=== PATIENT | male | born 1970 | race Caucasian/White ===

== ENCOUNTER 2021-02-27 16:52 | Emergency (ER) | payer SELFPAY | END 2021-02-27 17:32 | disposition home or self-care (01) | LOC: NAV ERS 16:52 | DX: Z20.822 Contact with and (suspected) exposure to COVID-19 (principal); I10 Essential (primary) hypertension; E78.00 Pure hypercholesterolemia, unspecified; E11.9 Type 2 diabetes mellitus without complications; I25.2 Old myocardial infarction; K21.9 Gastro-esophageal reflux disease without esophagitis; Z87.891 Personal history of nicotine dependence; Z79.84 Long term (current) use of oral hypoglycemic drugs; Z79.899 Other long term (current) drug therapy | CPT/HCPCS: 99283 ==

== ENCOUNTER 2023-10-18 23:50 | Emergency (ER) | payer BC, SELFPAY ==
[2023-10-19] MEDS ORDERED: predniSONE 20 MG TAB ONE (00:01)
== END 2023-10-19 00:20 | disposition home or self-care (01) ==
LOC: NAV ERS 23:50
DX: L50.0 Allergic urticaria (principal); I10 Essential (primary) hypertension; E11.9 Type 2 diabetes mellitus without complications; E78.00 Pure hypercholesterolemia, unspecified; Z87.891 Personal history of nicotine dependence; Z79.899 Other long term (current) drug therapy; Z79.84 Long term (current) use of oral hypoglycemic drugs
CPT/HCPCS: 99283; J7512